=== PATIENT | female | born 1955 | race Caucasian/White ===

== ENCOUNTER 2016-08-15 11:09 | Emergency (ER) | payer MEDICARE, OTHER ==
[2016-08-15 11:09] VITALS: BMI 27.2
[2016-08-15 11:34] VITALS: O2SAT 98
--- NOTE | 2016-08-15 11:48 | ED PDOC ---
HPI: Skin/Bite Injury Time Seen by Provider: 08/15/16 11:30 Chief Complaint (Nursing): Abnormal Skin Integrity Chief Complaint (Provider): cyst History Per: Patient History/Exam Limitations: no limitations Onset/Duration Of Symptoms: Days (x 2weeks) Additional Complaint(s): Farnaz Busby is a 61 year old female, with a previous medical history of HIV positive, who presents to the ED with complaints of a cyst on her right buttock ongoing for the past 2 weeks. Patient denies any fever, chills or drainage. Patient reports applying warm compresses with no relief. PMD: none provided Past Medical History Reviewed: Historical Data, Nursing Documentation, Vital Signs Vital Signs: Last Vital Signs Temp Pulse Resp BP Pulse Ox 98 08/15/16 11:51 - Medical History PMH: Asthma, Depression, Hepatitis (Hep C. Cured. ), HIV, Migraine Denies: Chronic Kidney Disease - Surgical History Surgical History: No Surg Hx - Family History Family History: States: Unknown Family Hx - Home Medications Home Medications: Ambulatory Orders Medication Instructions Recorded Propranolol [Inderal] 40 mg PO BID 10/15/14 Quetiapine Fumarate [Seroquel] 50 mg PO HS 10/15/14 SUMAtriptan [Imitrex Tab] 50 mg PO PRN PRN 10/15/14 Acetaminophen/Butalbital/Caf 1 tab PO Q6 PRN #0 tab 10/17/14 [Fioricet] Albuterol/Ipratropium [Duoneb 3 3 ml INH RQ6 #0 neb 10/17/14 mg/0.5 mg (3 ml) UD] Azithromycin [Zithromax] 250 mg PO DAILY #4 tab 04/04/16 Naproxen [Naprosyn] 500 mg PO BID PRN #15 tablet 04/04/16 Naproxen [Naprosyn] 500 mg PO Q12H #20 tab 08/15/16 - Allergies Allergies/Adverse Reactions: Allergies Allergy/AdvReac Type Severity Reaction Status Date / Time acetaminophen [From Vicodin] Allergy RASH Verified 08/15/16 11:31 hydrocodone bitartrate Allergy RASH Verified 08/15/16 11:31 [From Vicodin] morphine Allergy RASH Verified 08/15/16 11:31 crab meat Allergy ITCHING Uncoded 08/15/16 11:31 Review of Systems ROS Statement: Except As Marked, All Systems Reviewed And Found Negative Constitutional: Negative for: Fever, Chills Skin: Positive for: Other (cyst on right buttock with no drainage. ) Physical Exam - Reviewed Nursing Documentation Reviewed: Yes Vital Signs Reviewed: Yes - Physical Exam Appears: Positive for: Well, Non-toxic, No Acute Distress Head Exam: Positive for: ATRAUMATIC, NORMAL INSPECTION, NORMOCEPHALIC Skin: Positive for: Normal Color, Warm, Dry Cardiovascular/Chest: Positive for: Regular Rate, Rhythm Respiratory: Positive for: CNT, Normal Breath Sounds Extremity: Positive for: Normal ROM, Other (1 cm cyst on right lateral buttock. no erythema no fluctuance no drainage noted ) Neurologic/Psych: Positive for: Alert, Oriented - ECG O2 Sat by Pulse Oximetry: 98 (RA) Pulse Ox Interpretation: Normal Medical Decision Making Medical Decision Making: Initial Impression: Cyst Initial Plan: * physical exam * disposition Scribe Attestation: Documented by Vivian Roa, acting as a scribe for Vincent Lazo MD. Provider Scribe Attestation: All medical record entries made by the Scribe were at my direction and personally dictated by me. I have reviewed the chart and agree that the record accurately reflects my personal performance of the history, physical exam, medical decision making, and the department course for this patient. I have also personally directed, reviewed, and agree with the discharge instructions and disposition. Disposition - Clinical Impression Clinical Impression: Cyst - Patient ED Disposition Is Patient to be Admitted: No - Disposition Referrals: Ford Burgess MD [Staff Provider] - Disposition: Routine/Home Disposition Time: 12:12 Condition: FAIR Prescriptions: Naproxen [Naprosyn] 500 mg PO Q12H #20 tab Instructions: Cyst (ED)
[2016-08-15 12:18] VITALS: BP 128/76; PULSE 78; RESP 19; TEMP 97.6
== END 2016-08-15 14:03 | disposition home or self-care (01) ==
LOC: H.ER 11:09
DX: L02.31 Cutaneous abscess of buttock (principal); B20 Human immunodeficiency virus [HIV] disease

== ENCOUNTER 2016-09-01 13:16 | Emergency (ER) | payer MEDICARE, OTHER ==
[2016-09-01 13:17] VITALS: BMI 27.2
[2016-09-01 13:30] VITALS: BP 129/78; PULSE 113; RESP 16; TEMP 98.2; O2SAT 100
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
== END 2016-09-01 15:34 | disposition home or self-care (01) ==
LOC: H.ER 13:16
DX: S20.219A Contusion of unspecified front wall of thorax, initial encounter (principal); Y04.0XXA Assault by unarmed brawl or fight, initial encounter; Y92.89 Other specified places as the place of occurrence of the external cause; B19.20 Unspecified viral hepatitis C without hepatic coma; F32.9 Major depressive disorder, single episode, unspecified; J45.909 Unspecified asthma, uncomplicated; B20 Human immunodeficiency virus [HIV] disease
CPT/HCPCS: 71101; 96372; 99282; J1885

== ENCOUNTER 2017-06-03 16:22 | Emergency (ER) | payer MEDICARE, OTHER ==
[2017-06-03 16:22] VITALS: BMI 27.2
[2017-06-03 16:39] VITALS: BP 117/63; PULSE 100; RESP 18; TEMP 98.5; O2SAT 98
[2017-06-03] MEDS ORDERED: Naproxen 500 MG TAB PO ONE (16:44)
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
== END 2017-06-03 17:11 | disposition home or self-care (01) ==
LOC: H.ER 16:22
DX: S60.943A Unspecified superficial injury of left middle finger, initial encounter (principal); W19.XXXA Unspecified fall, initial encounter; Y92.89 Other specified places as the place of occurrence of the external cause; B19.20 Unspecified viral hepatitis C without hepatic coma; F32.9 Major depressive disorder, single episode, unspecified; J45.909 Unspecified asthma, uncomplicated; Z88.5 Allergy status to narcotic agent

== ENCOUNTER 2017-12-20 14:13 | Emergency (ER) | payer MEDICARE, OTHER ==
[2017-12-20 14:13] VITALS: BMI 27.2
[2017-12-20 14:21] VITALS: TEMP 98.3
--- NOTE | 2017-12-20 14:46 | ED PDOC ---
HPI: General Adult Time Seen by Provider: 12/20/17 14:42 Chief Complaint (Nursing): Headache Chief Complaint (Provider): cough/fever History Per: Patient (62 y/o female h/o HIV h/o COPD here with cough/fever x 2-3 days. Notes vomiting with coughing. Denies any diarrhea.) Past Medical History Reviewed: Historical Data, Nursing Documentation, Vital Signs Vital Signs: Last Vital Signs Temp 98.3 F 12/20/17 14:18 Pulse 95 H 12/20/17 14:18 Resp 18 12/20/17 14:18 BP 106/69 12/20/17 14:18 Pulse Ox 95 12/20/17 14:18 - Medical History PMH: Asthma, Depression, Hepatitis (Hep C. Cured. ), HIV, Migraine Denies: Diabetes, HTN, Chronic Kidney Disease, Seizures - Family History Family History: States: Unknown Family Hx - Home Medications Home Medications: Ambulatory Orders Medication Instructions Recorded Propranolol [Inderal] 40 mg PO BID 10/15/14 Quetiapine Fumarate [Seroquel] 50 mg PO HS 10/15/14 SUMAtriptan [Imitrex Tab] 50 mg PO PRN PRN 10/15/14 Acetaminophen/Butalbital/Caf 1 tab PO Q6 PRN #0 tab 10/17/14 [Fioricet] Albuterol/Ipratropium [Duoneb 3 3 ml INH RQ6 #0 neb 10/17/14 mg/0.5 mg (3 ml) UD] Azithromycin [Zithromax] 250 mg PO DAILY #4 tab 04/04/16 Naproxen [Naprosyn] 500 mg PO BID PRN #15 tablet 04/04/16 Naproxen [Naprosyn] 500 mg PO Q12H #20 tab 08/15/16 traMADol [Ultram] 50 mg PO Q8 #10 tab 09/01/16 Albuterol 0.083% [Albuterol 0.083% 2.5 mg IH Q8 PRN #100 neb 12/20/17 Inhal Manju (2.5 mg/3 ml) UD] Azithromycin [Zithromax] 250 mg PO DAILY #6 tab 12/20/17 Mask, Face [Nebulizer Aerosol Mask 1 dev XX PRN PRN #1 dev 12/20/17 Adult] Nebulizer [Aeroneb Go Nebulizer] 1 each MC Q8 PRN #1 each 12/20/17 Prednisone [Deltasone] 2 tab PO DAILY #10 tablet 12/20/17 - Allergies Allergies/Adverse Reactions: Allergies Allergy/AdvReac Type Severity Reaction Status Date / Time acetaminophen [From Vicodin] Allergy RASH Verified 12/20/17 14:17 hydrocodone bitartrate Allergy RASH Verified 12/20/17 14:17 [From Vicodin] morphine Allergy RASH Verified 12/20/17 14:17 crab meat Allergy ITCHING Uncoded 12/20/17 14:17 Review of Systems ROS Statement: Except As Marked, All Systems Reviewed And Found Negative Physical Exam - Reviewed Nursing Documentation Reviewed: Yes Vital Signs Reviewed: Yes - Physical Exam Appears: Positive for: Well, Non-toxic, No Acute Distress Head Exam: Positive for: ATRAUMATIC, NORMAL INSPECTION, NORMOCEPHALIC Skin: Positive for: Normal Color, Warm, DRY Eye Exam: Positive for: EOMI, Normal appearance, PERRL ENT: Positive for: Normal ENT Inspection Neck: Positive for: Normal, Painless ROM Cardiovascular/Chest: Positive for: Regular Rate, Rhythm Respiratory: Positive for: Normal Breath Sounds, Wheezing Gastrointestinal/Abdominal: Positive for: Normal Exam, Soft Back: Positive for: Normal Inspection Extremity: Positive for: Normal ROM Neurologic/Psych: Positive for: Alert, Oriented - Laboratory Results Result Diagrams: 12/20/17 15:30 12/20/17 15:30 - ECG O2 Sat by Pulse Oximetry: 95 - Progress ED Course And Treament: DUONEB X 1 DOS NS 1 LITER WIDE OPEN CXR: IMPRESSION: No active pulmonary disease. COPD. INFLUENZA A/B NEGATIVE REPEAT TEMP 98.7 Disposition - Clinical Impression Clinical Impression: Bronchitis - Patient ED Disposition Is Patient to be Admitted: No - Disposition Disposition: Routine/Home Disposition Time: 16:54 Condition: FAIR Prescriptions: Albuterol 0.083% [Albuterol 0.083% Inhal Manju (2.5 mg/3 ml) UD] 2.5 mg IH Q8 PRN #100 neb PRN Reason: Cough Azithromycin [Zithromax] 250 mg PO DAILY #6 tab Mask, Face [Nebulizer Aerosol Mask Adult] 1 dev XX PRN PRN #1 dev PRN Reason: Cough Nebulizer [Aeroneb Go Nebulizer] 1 each MC Q8 PRN #1 each PRN Reason: Cough Prednisone [Deltasone] 2 tab PO DAILY #10 tablet Instructions: Acute Bronchitis, Adult (DC) Forms: [facility] ED School/Work Excuse
--- NOTE | 2017-12-20 15:07 | RAD ---
HISTORY: Cough COMPARISON: 04/04/2016. TECHNIQUE: Chest PA and lateral FINDINGS: LINES AND TUBES: None. LUNG AND PLEURA: The lungs are hyperinflated and there is peribronchial thickening with chronic changes in both lungs. No focal consolidation. No pleural effusion or pneumothorax. HEART AND MEDIASTINUM: The heart is not enlarged. Atherosclerotic aortic arch calcifications are present. The hilar and mediastinal contours are within normal limits. SKELETAL STRUCTURES: The bony structures are within normal limits for the patient's age. VISUALIZED UPPER ABDOMEN: Normal. OTHER FINDINGS: None. IMPRESSION: No active pulmonary disease. COPD.
[2017-12-20 15:47] LABS: BASO % 0.3 % (0.0-2.0); EOS # 0.1 K/uL (0.0-0.7); EOS % 0.5 % (0.0-4.0); HEMOGLOBIN 14.6 g/dL (12.0-16.0); LYMPH # 2.5 K/uL (1.0-4.3); LYMPH % 25.1 % (20.0-40.0); MEAN CELL VOLUME 97.7 fl (81.0-99.0); MEAN CORPUSCULAR HEMOGLOBIN 35.4 pg (27.0-31.0); MEAN CORPUSCULAR HGB CONC 36.2 g/dL (33.0-37.0); MEAN PLATELET VOLUME 9.1 fl (7.2-11.7); MONO # 0.9 K/uL (0.0-0.8); MONO % 8.8 % (0.0-10.0); NEUT # 6.6 K/uL (1.8-7.0); NEUT % 65.3 % (50.0-75.0); NRBC % 0.1 % (0.0-0.0); RBC 4.11 Mil/uL (3.80-5.20); RED CELL DISTRIBUTION WIDTH 13.2 % (11.5-14.5)
[2017-12-20 15:58] LABS: VENOUS BLOOD GAS PCO2 42 mmHg (40-60); VENOUS BLOOD GAS PO2 42 mm/Hg (30-55)
[2017-12-20] MEDS ORDERED: Albuterol-Ipratrop 3 mg / 0.5 (3 ml) UD ONE (16:01)
[2017-12-20] MEDS: Albuterol-Ipratrop 3 mg / 0.5 (3 ml) UD INH STA (16:02)
[2017-12-20] MEDS: Sodium Chloride 0.9% 1,000 ML IV STA (16:03)
[2017-12-20 16:05] LABS: ALBUMIN 4.3 g/dL (3.5-5.0); ALT/SGPT 25 U/L (9-52); AST/SGOT 25 U/L (14-36); BLOOD UREA NITROGEN 11 mg/dl (7-17); CALCIUM 10.9 mg/dL (8.4-10.2); GFR NON-AFRICAN AMERICAN > 60
[2017-12-20 17:09] VITALS: BP 111/73; PULSE 85; RESP 17; O2SAT 98
== END 2017-12-20 17:08 | disposition home or self-care (01) ==
LOC: H.ER 14:13
DX: J20.9 Acute bronchitis, unspecified (principal); B19.20 Unspecified viral hepatitis C without hepatic coma; J44.9 Chronic obstructive pulmonary disease, unspecified; Z88.5 Allergy status to narcotic agent; F32.9 Major depressive disorder, single episode, unspecified; B20 Human immunodeficiency virus [HIV] disease
CPT/HCPCS: 71046; 80053; 82803; 85025; 87040; 87804; 94150; 94640; 96361; 96374; 99284; J7030

== ENCOUNTER 2017-12-22 14:28 | Emergency (ER) | payer MEDICARE, OTHER ==
[2017-12-22 14:28] VITALS: BMI 27.2
[2017-12-22 14:45] VITALS: BP 124/71; PULSE 96; RESP 20; TEMP 97.9; O2SAT 95
== END 2017-12-22 15:08 | disposition left against medical advice (07) ==
LOC: H.ER 14:28
DX: Z02.89 Encounter for other administrative examinations (principal)